=== PATIENT | male | born 2000 | race Caucasian/White ===

== ENCOUNTER 2020-09-27 12:24 | Emergency (ER) | payer BC, SELFPAY ==
[2020-09-27 12:25] VITALS: BP 147/91; PULSE 104; RESP 16; TEMP 36; O2SAT 96; BMI 29.6
--- NOTE | 2020-09-27 13:00 | CM.ED ---
SOCIAL WORK ASSESSMENT Informant: Dr. Zhou Reason for Consult: Suicidal Ideation Chief Compliant: Patient presents from [facility] for suicidal ideation. Patient reports plan would be to use any sharp object. 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 Patient reports is prescribed Zoloft and has been taking it for 4 years. Patient admits to history of cutting. Patient reports increase in suicidal ideation over the last week. Patient reports family history of depression on father's side. Triggers/Stressors: Isolation due to COVID-19 Pandemic, weight gain, fatigue Coping Skills: Talking to people, going on a walk, listening to music Abuse Issues: Patient denies any history of abuse. Substance Abuse History: Patient admits to occasional alcohol use. Risk to Self/Others: Suicidal- Patient admits to suicidal ideation with plan to use any sharp object. Patient denies any prior history of attempt or hospitalizations. Homicidal- Patient denies any homicidal ideation. Mental Status Exam: Orientation- A&OX3 Memory- Good Appearance/General Behavior: clean/appropriate, calm Mood/Affect: depressed, flat Communication Pattern: responds to questions Thought Process: appropriate Judgment: poor Assessment: Met with patient in room along with Dr. Zhou. Sitter protocol in place. Introduced role and reason for referral. Patient discussed history of anxiety and depression and states is treated with medication- Zoloft. Patient states increase in suicidal ideation over the last week with plan to use any sharp object. Patient states lack of interest in usual activities, feelings of helplessness and hopelessness. Patient states difficulty with sleeping and states feeling more fatigue. Patient believes would benefit from hospitalization. Collaboration with Dr. Zhou. Plan for inpatient psych referral. This worker to facilitate placement. Plan: Referral to inpatient psych Mk Ernst MSW, ASSOCIATE PROFESSOR OF COMMUNICATION
[2020-09-27 14:08] LABS: Absolute Lymphocyte Count 1.39 X10^3/uL (0.83-4.51); Absolute Neutrophil Count 4.1 X10^3/uL (2.0-7.7); Basophil# 0.02 X10^3/uL; Basophil% 0.3 % (0-1); Eosinophil# 0.04 X10^3/uL; Eosinophils% 0.7 % (0-5); Hematocrit 43.9 % (40-54); Hemoglobin 15.9 g/dL (13.0-16.5); Lymphocyte # 1.39 X10^3/ul (4.0); Mean Corp Hgb Conc 36.2 g/dL (32-36); Mean Corpuscular Hgb 32.4 pg (27.0-32.0); Mean Corpuscular Volume 89.4 fL (80-94); Mean Platelet Vol. 13.9 fl (6.2-12.0); Monocyte# 0.47 X10^3/uL; Monocyte% 7.8 % (0-10); NRBC Flagged by Analyzer 0 % (0-5); Neutrophil # 4.11 X10^3/uL (2.7-7.7); Neutrophil % 67.9 % (47-70); Platelet Count 167 K/mm3 (150-450); RBC Distribution Width CV 11.9 % (11.6-14.6); RBC Distribution Width SD 38.1 fl (35.1-43.9); Red Blood Count 4.91 M/mm3 (4.6-6.2); White Blood Count 6.1 K/mm3 (4.4-11.0)
--- NOTE | 2020-09-27 14:19 | ED.DCSUM_ITS ---
- ER Visit Summary Date of Service: 09/27/20 Chief Complaint: Suicidal ideations History of Present Illness: The patient is a 20 M who presents with suicidal ideations that became worse today. Patient states they have gradually gotten worse over the past few weeks. Patient states that he is getting more depressed because he is unable to socialize at school. 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 Patient states he has been feeling more depressed. Patient states he has been having suicidal thoughts of cutting himself with something sharp. Patient denies any visual or auditory hallucinations. Patient does have a history of anxiety and is on Zoloft. Physical Examination: Vital signs are stable. Patient is afebrile. Patient is in no acute distress. Oral mucosa is pink and moist. Neck is supple. Trachea is midline. There is no JVD noted. Heart was regular rate and rhythm. Lungs are clear and equal bilaterally. Abdomen is soft. Bowel sounds are normal. There is no tenderness. There is no rebound or guarding noted. Skin is warm dry. Cranial nerves II through XII are intact. There are no focal motor or sensory deficits noted. Extremities are intact. There is no calf tenderness or edema. Patient does have a flat affect and a depressed mood. Patient admits to suicidal ideations. Test Results: EKG was obtained. On my interpretation, there is a normal sinus rhythm with a rate of 84. There are no acute ST or T wave changes. BC and comprehensive metabolic profile were within normal limits. Serum alcohol level was normal. Urine tox screen was negative. Emergency Department Course and Treatment: Patient was maintained on suicide precautions. Patient is medically clear for placement in a psychiatric facility. Patient understood and was agreeable with the plan. All questions were answered. Disposition: Transfer to psychiatric facility Impression: Depression with suicidal ideation This note was generated with [employer] dictation software. It may contain incorrect words, spelling, and punctuation that were not noted in review of the chart prior to signing ED Disposition - Plan for ED Patient: Disposition: Psychiatric Hospital or Unit Diagnosis: Depression with suicidal ideation Referrals: [facility] Doctor,Out of [NON-STAFF] -
[2020-09-27 14:20] LABS: Amphetamine Urine VISTA NEGATIVE (<1000 ng/mL); Barbiturate Urine VISTA NEGATIVE (< 200 ng/mL); Benzodiazepine Urine VISTA NEGATIVE (< 200 ng/mL); Cocaine Urine VISTA NEGATIVE (< 300 ng/mL); Ecstacy Urine VISTA NEGATIVE (< 500 ng/mL); Methadone Urine VISTA NEGATIVE (< 300 ng/mL); PCP Urine VISTA NEGATIVE (< 25 ng/mL); THC Urine VISTA NEGATIVE (< 50 ng/mL); Vista UDS pH Range 6
[2020-09-27 14:26] LABS: ALB/GLOB Ratio 1.2 RATIO (0.9-2.4); AST(SGOT) 34 U/L (15-37); Alanine Aminotransfer ALT/SGPT 39 U/L (16-61); Albumin, Serum 3.8 g/dL (3.2-5.0); Alkaline Phosphatase 99 U/L (45-117); Anion Gap 7 (5-15); BUN 18 mg/dL (7-18); BUN/Creat Ratio 14.2 RATIO (10-20); Calcium,Total 8.7 mg/dL (8.5-10.1); Chloride 108 mmol/L (98-107); Creatinine, Serum 1.27 mg/dL (0.70-1.30); EST Glomerular Filtration Rate 75 mL/min (>60); Est Glom Filt Rate - Afr Amer 91 mL/min (>60); Estimated Creatinine Clearance 88.27 ml/min; Globulin 3.1 g/dL (2.2-4.2); Glucose 88 mg/dL (74-106); Potassium 4.5 mmol/L (3.5-5.1); Protein, Total 6.9 g/dL (6.4-8.2); Sodium Level 139 mmol/L (136-145)
[2020-09-27 14:28] LABS: Alcohol, Blood (Medical)-Serum < 3.0 mg/dL
--- NOTE | 2020-09-27 14:36 | EKG12_ITS ---
Test Reason : MENTAL HEALTH Blood Pressure : / mmHG Vent. Rate : 084 BPM Atrial Rate : 084 BPM P-R Int : 148 ms QRS Dur : 102 ms QT Int : 372 ms P-R-T Axes : 060 014 020 degrees QTc Int : 439 ms Normal sinus rhythm Normal ECG Confirmed by ROBERTO LARSON, LYLE ([id number]), food expeditor DAFNE BOSTON ([id number]) on 09/29/2020 1:29:35 PM Referred By: SHANKAR Confirmed By:LYLE MEJIA MD
--- NOTE | 2020-09-27 15:17 | CM.ED ---
SOCIAL WORK Per Dr. Zhou, patient is medically cleared for inpatient psych. Referral called and faxed to [facility]. Pending review at this time. Mk Ernst, UNIFORM MAKER, PEDIATRIC NEPHROLOGIST
--- NOTE | 2020-09-27 15:48 | CM.ED ---
SOCIAL WORK Call from [facility]. Patient accepted by Dr. Cheng. Nurse to call report to [phone]. Worker reports will call [facility] for transport and call this worker back with ETA. Patient and staff kristin. Mk Ernst, WATER USE INSPECTOR, SMALL PARTS SHAPER OPERATOR
[2020-09-27 16:16] VITALS: BP 134/84; PULSE 83; RESP 18; TEMP 36.8; O2SAT 96
--- NOTE | 2020-09-27 16:17 | ED.RN ---
called report to [facility] set up for 6 pm.
== END 2020-09-27 18:00 ==
PROVIDERS: Emergency Provider Emergency Medicine
DX: F32.9 Major depressive disorder, single episode, unspecified (principal); R45.851 Suicidal ideations; F41.9 Anxiety disorder, unspecified; Z79.899 Other long term (current) drug therapy
CPT/HCPCS: 36415; 80053; 80307; 82077; 85025; 87426; 93005; 99285